=== PATIENT | male | born 1990 | race American Indian/Alaskan Native ===

== ENCOUNTER 2020-06-19 12:26 | Emergency (ER) | payer OTHER ==
[~2020-06-19] VITALS: Ht 180.3 cm; Wt 160.0 kg
[~2020-06-19 12:26] MED LIST: PEPCID20 MG PO; PERCOCET 7.5-31 EACH PO
[2020-06-19] MEDS ORDERED: FLOMAX0.4 MG PO (15:44)
[2020-06-19] MEDS ORDERED: HYDROCODON-ACE1 EA11 PO (15:44)
[2020-06-19] MEDS ORDERED: ONDANSETRON ODT8 MG PO (15:44)
== END 2020-06-19 16:18 | disposition home or self-care (01) ==
LOC: ED 12:26
DX: N13.2 Hydronephrosis with renal and ureteral calculous obstruction (principal)
CPT/HCPCS: 74176; 80053; 81001; 85025; 96374; 96375; 96376; 99284-25; J1170; J1885; J2405; J7030

== ENCOUNTER 2022-04-28 14:21 | Emergency (ER) | payer OTHER ==
[~2022-04-28] VITALS: Ht 180.3 cm; Wt 158.8 kg
[~2022-04-28 14:21] MED LIST changes: +FLOMAX0.4 MG PO; +HYDROCODON-ACE1 EA11 PO; +ONDANSETRON ODT8 MG PO
[2022-04-28] MEDS ORDERED: HYDROCODON-ACE1 EA10 PO (16:59)
== END 2022-04-28 17:21 | disposition home or self-care (01) ==
LOC: ED 14:21
DX: U07.1 COVID-19 (principal); K43.9 Ventral hernia without obstruction or gangrene; R91.1 Solitary pulmonary nodule
CPT/HCPCS: 36415; 74177; 80053; 81001; 83690; 85025; 87502; 96361; 96374; 96375; 99284-25; C9803; J1170; J2405; J7030; Q9967; U0003